=== PATIENT | female | born 2000 | race Hispanic/Latino ===

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

== ENCOUNTER 2019-07-14 15:36 | Inpatient (IN) | payer OTHER ==
[2019-07-14] MEDS ORDERED: Sodium Chloride 0.9% 1,000 ML IV SCH (16:00)
[2019-07-14] MEDS ORDERED: Gentamicin 20 MG/2 ML PF (Neonates) IVPB SCH ×2 (16:00→22:00)
[2019-07-14 16:25] VITALS: BMI 20.8
[2019-07-14] MEDS ORDERED: Gentamicin Sulfate 120 MG in Premix Bag 1 BAG IVPB SCH (16:45)
--- NOTE | 2019-07-14 16:47 | HP ---
PRINCIPAL DIAGNOSIS: Fever and right-sided low back pain for 2 days. This is a patient of Dr. Ang Arnold at [facility]'s [place]. HISTORY OF PRESENT ILLNESS: This is a 18-year-old G1, P0, at 23 weeks and 3 days with an EDC of November 07, 2019, who presented to the ER with complaint of fever and low back pain. She was sent up to Labor and Delivery for suspected pyelonephritis. She initially did not say that she had fever, so she initially avoided the COVID screening process. Nonetheless, when fever was found to be the diagnosis, when she arrived, she was put in room 7 and the proper PPE precautions were in place since arrival to the floor. In brief, she states that for 2 days, she has had burning on urination, frequency, and right-sided back pain. The patient's mother is here with her. She has good movement, but denies any complications, vaginal bleeding, or leakage of fluid. She denies any cough or sick contacts. She states that she had a fever of 101 at home earlier today. REVIEW OF SYSTEMS: Complete review of systems was checked but is otherwise negative unless specified in the HPI. PAST MEDICAL HISTORY: None. ALLERGIES: NONE. PAST SURGICAL HISTORY: Noncontributory. OB HISTORY: She is G1, P0. PHYSICAL EXAMINATION: VITAL SIGNS: Her temperature here is 101, pulse is 90s to 100s, blood pressure was pending as she had just arrived to Labor and Delivery, respirations were 18 and unlabored. GENERAL: She is sitting comfortably in bed, but appears nervous because of the COVID screening. She does have a face mask in place. ABDOMEN: Soft, nontender. She does admit to right CVAT. PELVIC: Deferred as the patient was uncomfortable with her low back pain and there was no vaginal complaints at this time. ASSESSMENT: This is a 18-year-old G1 at 23 weeks and 3 days with suspected pyelonephritis due to her complaints of low back pain, urinary frequency and dysuria, and fever. COVID rule out is in process per protocol. PLAN: 1. COVID screen to be obtained. 2. I have ordered a cath UA with reflex micro and reflex culture. 3. I have started Rocephin and gentamicin as empiric treatment for pyelonephritis. 4. PPE protocol in use. 5. I have ordered LR and normal saline hydration (normal saline to be given with Rocephin and then we will go back to LR). 6. Tylenol for fever. 7. I have ordered an OB ultrasound for documentation of EGA, although I am sure she has had one in her private visits. We will get one for record here. 8. I have explained this plan to the patient and the patient's mother, who is in the room. Job ID: [id number] MTDD
[2019-07-14] MEDS: Lactated Ringer's 1,000 ML IV SCH ×2 (16:51→20:54)
[2019-07-14] MEDS: cefTRIAXone\\ROCEPHIN 1 GM in Sodium Chloride 0.9% 100 ML IVPB SCH (17:02)
[2019-07-14] MEDS: Acetaminophen 500 MG TAB PO PRN ×2 (17:10→23:04)
[2019-07-14 17:20] LABS: #Lymphocytes 1.2 thou/uL (1.20-3.40); #Monocytes 1.1 thou/uL (0.11-0.59); #Neutrophils 14.6 thou/uL (1.40-6.50); %Eosinophils 0.1 % (0.0-10.0); %Lymphocytes 6.8 % (28.0-48.0); %Monocytes 6.7 % (0.0-4.0); %Neutrophils 86.4 % (31.0-61.0); Hemoglobin 12.1 g/dL (12.0-16.0); Mean Corpuscular HGB CONC 33.6 g/dL (32.0-36.0); Mean Corpuscular Hemoglobin 30.3 pg (25.0-35.0); Mean Corpuscular Volume 90.1 fL (78.0-98.0); Mean Platelet Volume 7.7 fL (7.4-10.4); Platelet Count 295 thou/uL (130-400); RBC Distribution Width 12.4 % (11.5-14.5); White Blood Cell (WBC) Count 16.9 thou/uL (4.8-10.8)
[2019-07-14 17:31] LABS: Bilirubin Negative (Negative); Blood, Urine Negative (Negative); Clarity Turbid (Clear); Glucose, Urine (Dipstick) Normal (Negative); Leukocyte 500 Leu/uL (Negative); Nitrite 2+ (Negative); Protein, Urine (Dipstick) 100 mg/dL (Neg-Trace); Renal Epithelial 0-3 HPF (None Seen); Urobilinogen 3 mg/dL (Less than 2); WBC/HPF Greater than 50 HPF (0-3)
[2019-07-14 17:40] LABS: ALT (SGPT) 11 U/L (8-55); AST (SGOT) 13 U/L (5-30); Albumin 3.8 g/dL (3.5-5.0); Alkaline Phosphatase 87 U/L (40-100); Anion Gap 14 mmol/L (10-20); BUN (Urea Nitrogen) 5 mg/dL (8.4-21.0); Bilirubin, Total 1.1 mg/dL (0.2-1.2); Calc. Creatinine Clearance 130 mL/min (70-130); Calcium 9.4 mg/dL (7.8-10.44); Carbon Dioxide 25 mmol/L (22-29); Chloride 102 mmol/L (98-107); Estimated GFR-MDRD Greater than 90; Globulin 3.4 g/dL (2.4-3.5); Glucose 79 mg/dL (70-105); Potassium 3.7 mmol/L (3.5-5.1); Protein, Total 7.2 g/dL (6.0-8.3); Sodium 137 mmol/L (136-145)
[2019-07-14 17:41] LABS: Bacteria/HPF 3+ HPF (None Seen)
--- NOTE | 2019-07-14 18:06 | PDOC.EVN ---
Event Note - Event Note Event Note: UA with overt evidence UTI. Culture pending. WBC 16.9 Flu and COVID testing sent.
--- NOTE | 2019-07-14 18:57 | ULT ---
ULTRASOUND OBSTETRICAL COMPLETE: 07/14/19 HISTORY: 18-year-old female for evaluation of anatomy. According to the wellness health coach note, she gave verbal report to nurse, Jenniffer. FINDINGS: number: Nava. lie: Cephalic. Maternal cervix: Poorly visualized. Placenta: Posterior. No placenta previa. Amniotic fluid volume: ISABELLA 13 cm. heart rate: 180 bpm The following anatomy is visualized, with no evidence of anomalies: Head, lateral ventricles, cerebellum, nose and lips, spine, upper limbs, lower limbs, four chamber he art, umbilical cord, cord insertion, stomach, and bladder. The left renal pelvis measures approximately 5 mm in AP dimension, at the upper limits of normal for this gestational age. biometry: Head circumference (HC): 21.7 cm 23w 5d Biparietal diameter (BPD): 5.9 cm 24w 0d Abdominal circumference (AC): 19.0 cm 23w 5d Femur length (FL): 4.2 cm 23w 3d Average ultrasound age (AUA): 23w 5d Estimated date of delivery (ISSA): 11/05/2019 Last menstrual period (LMP): 01/31/2019 Gestational age by LMP: 23w 3d Estimated weight (EFW): 617 g +/- 91 g (1 lb. 6 oz. +/- 3 oz.) IMPRESSION: 1. Live second trimester intrauterine gestation. 2. Estimated gestational age of 23 weeks, 5 days. 3. Cephalic lie. 4. Unilateral borderline left renal pelviectasis. 5. Borderline tachycardia. 6. Recommend follow-up. jude [] POS: CARI
[2019-07-15] MEDS: Gentamicin Sulfate 80 MG in Premix Bag 1 BAG IVPB SCH ×3 (02:30→19:24)
[2019-07-15] MEDS: Lactated Ringer's 1,000 ML IV SCH ×3 (06:05→21:43)
[2019-07-15] MEDS: Acetaminophen 500 MG TAB PO PRN ×2 (06:07→17:03)
--- NOTE | 2019-07-15 06:23 | PDOC.HOSPP ---
- Subjective Encounter Date: 07/15/19 (HD 2(admitted yesterday)) Encounter Time: 06:10 Subjective: Feels much better, she states her right flank pain is much improved, dk po - Objective Vital Signs & Weight: Weight Weight 114 lb Tmax was recorded as 104 last PM. I reviewed with her RN; the RN felt that may have been erroneous as she clinically looked well and non-toxic. This AM at 0600 the patient's temp was 100.5 BPs are wnl for her for 110s/60s with one value of 142 systolic last PM close to 2100. MEDS: Gent/Rocephin FLU neg CBC pending this AM Result Diagrams: 07/14/19 16:20 07/14/19 15:56 Radiology Reviewed by me: Yes ( sono noted with left BORDFERLINE pyelectasis) Hospitalist ROS - Review of Systems Constitutional: reports: fever All other systems reviewed; all pertinent +/- noted in HPI/Subj - Medication Medications: Active Medications Generic Name Dose Route Start Last Admin Trade Name Freq PRN Reason Stop Dose Admin Acetaminophen 1,000 mg 07/14/19 15:51 07/15/19 06:07 Tylenol PO 1,000 mg Q6H PRN Administration Moderate to Severe Pain (6-10) Ceftriaxone Sodium 1 gm/ 100 mls @ 200 mls/hr 07/14/19 16:30 07/14/19 17:02 Sodium Chloride IVPB 100 mls Q24HR VERENA Administration Lactated Ringer's 1,000 mls @ 125 mls/hr 07/14/19 16:00 07/15/19 06:05 Lactated Ringer's IV 1,000 mls .Q8H VERENA Administration Gentamicin Sulfate 80 mg/ 100 mls @ 200 mls/hr 07/14/19 00:30 07/15/19 02:30 Device IVPB 100 mls Q8H VERENA Administration - Exam Gastrointestinal: non-tender, non-distended Extremities: no cyanosis, no clubbing Skin: normal turgor Neurological: no focal deficits, no new deficit Psychiatric: normal affect Hosp A/P (1) Fever Code(s): R50.9 - FEVER, UNSPECIFIED Status: Acute (2) Pyelonephritis affecting in second trimester Code(s): O23.02 - INFECTIONS OF KIDNEY IN , SECOND TRIMESTER Status: Acute - Plan continue antibiotics (await urine culture; tylenol prn; COVID test pending. Follow temps.), out of bed/ambulate
[2019-07-15 06:47] LABS: #Lymphocytes 1.1 thou/uL (1.20-3.40); #Monocytes 1.3 thou/uL (0.11-0.59); #Neutrophils 15.2 thou/uL (1.40-6.50); %Basophils 0.1 % (0.0-1.0); %Eosinophils 0.2 % (0.0-10.0); %Lymphocytes 6.2 % (28.0-48.0); %Monocytes 7.2 % (0.0-4.0); %Neutrophils 86.4 % (31.0-61.0); Mean Corpuscular HGB CONC 34.7 g/dL (32.0-36.0); Mean Corpuscular Hemoglobin 31.3 pg (25.0-35.0); Mean Corpuscular Volume 90.1 fL (78.0-98.0); Platelet Count 252 thou/uL (130-400); RBC Distribution Width 12.4 % (11.5-14.5); Red Blood Cell (RBC) Count 3.53 mill/uL (4.00-5.20); White Blood Cell (WBC) Count 17.6 thou/uL (4.8-10.8)
[2019-07-15] MEDS: cefTRIAXone\\ROCEPHIN 1 GM in Sodium Chloride 0.9% 100 ML IVPB SCH (17:09)
[2019-07-16] MEDS: Gentamicin Sulfate 80 MG in Premix Bag 1 BAG IVPB SCH ×3 (03:19→19:56)
[2019-07-16] MEDS: Lactated Ringer's 1,000 ML IV SCH ×3 (05:49→23:56)
[2019-07-16 07:05] LABS: #Monocytes 0.7 thou/uL (0.11-0.59); #Neutrophils 9.2 thou/uL (1.40-6.50); %Basophils 0.2 % (0.0-1.0); %Eosinophils 0.3 % (0.0-10.0); %Lymphocytes 9.3 % (28.0-48.0); %Monocytes 6.3 % (0.0-4.0); %Neutrophils 83.9 % (31.0-61.0); Hemoglobin 9.9 g/dL (12.0-16.0); Mean Corpuscular HGB CONC 35.1 g/dL (32.0-36.0); Mean Corpuscular Hemoglobin 31.8 pg (25.0-35.0); Mean Corpuscular Volume 90.6 fL (78.0-98.0); Mean Platelet Volume 7.3 fL (7.4-10.4); Platelet Count 241 thou/uL (130-400); RBC Distribution Width 12.2 % (11.5-14.5)
--- NOTE | 2019-07-16 09:08 | PRG ---
DATE OF SERVICE: 07/16/2019 SUBJECTIVE: The patient is a 18-year-old female with an intrauterine at 23 weeks and 5 days, who was admitted with signs and symptoms of pyelonephritis. The patient has been on Rocephin and gentamicin for treatment. Also, the patient has been tested for COVID-19 and has been placed on isolation given the presence of fever. Results should be back today. Her urine culture has grown out E. coli. The patient has symptomatically been improving with treatment and has been afebrile since yesterday evening around 5 o'clock. I will continue current treatment as evidence is pointing more and more to pyelonephritis and anticipate the COVID-19 test to return today. If the patient continues to remain afebrile for the next 24 to 36 hours, the patient may be eligible for discharge home. Dr. Newsomes, her primary OB, has her set up for suppression for the remainder of her . Job ID: [id number]
[2019-07-16] MEDS: cefTRIAXone\\ROCEPHIN 1 GM in Sodium Chloride 0.9% 100 ML IVPB SCH (17:12)
[2019-07-17] MEDS: Gentamicin Sulfate 80 MG in Premix Bag 1 BAG IVPB SCH (03:58)
--- NOTE | 2019-07-17 07:20 | PDOC.BPN ---
- Brief Progress Note S: Patient feeling better today. Denies pain, VB, LOF, ctx, or other complaints. +FM O: Tm 101.4 (07/14 @1701), VSS Gen - AAO, NAD Abd - soft, gravid, NTTP Urine Culture: 100,000 E. coli, sensitive to Rocephin A/P: 18 y/o G1 at 23w6d with pyelonephritis, clinically improving on Rocephin and Gent. Culture + for E. coli, sensitive to Rocephin. Will d/c gent. Has been afebrile over 24 hours. Will discuss discharge timing of today vs tomorrow with Dr. Arnold. Continue to monitor at this time.
[2019-07-17] MEDS: Lactated Ringer's 1,000 ML IV SCH (07:59)
--- NOTE | 2019-07-17 08:31 | PDOC.EVN ---
Event Note - Event Note Event Note: OB lactation nurse note: Last temp was 07/14 at 1700. EColi sensitive to meds given. Likely home this PM with po macrobid (ordered per [place] to pharmacy)
--- NOTE | 2019-07-17 09:06 | DIS ---
DATE OF ADMISSION: 07/14/2019 DATE OF DISCHARGE: 07/17/2019 (today) PRINCIPAL DIAGNOSES: 1. Suspected right-sided pyelonephritis. 2. Second trimester (23-week gestation). 3. Maternal fever. HISTORY OF PRESENT ILLNESS: In brief, this 18-year-old primigravida was admitted when I was on-call on July 13 with high fever. She did have one temperature reading of 101.7 or so and then another reading after her admission got to a high of 104, but it was unsure if that was a valid temp as it was lower than that on recheck about 30 minutes later. She was admitted for pain on urination, right-sided pain and fever with a working diagnosis of pyelonephritis. However, because of her high temperature, she did follow the COVID19 rule out protocol and was put in droplet precautions. I started her on Rocephin and gentamicin for double coverage until her urine culture returned. Cath UA did show many bacteria and evidence of a UTI. Her urine culture did return positive for E coli during her hospitalization and it was sensitive to Rocephin, and so we stopped the gentamicin (Dr. Mcconnell stopped the gentamicin after the culture returned). It was sensitive to both. I evaluated the patient on the morning of 07/17/2019 and as she had been afebrile for greater than 24 hours (with the last temperature on July 14 at about 5:00 p.m.), I elected to send her home on 07/16 at around noon. I saw her at bedside in full PPE and she stated that she was clinically much improved and was happy to go home. We do not have the COVID test results yet, but my index of suspicion for this is low and even if it is positive, the Health Department will contact her and follow up. Her white blood cell count did decrease from an initial high value of 17 down to 11, and the 11 value was yesterday on July 15. MEDS: She was sent home on Macrobid 100 mg one p.o.b.i.d. for five days and then she will continue daily suppression for the remainder of the . I did discuss this with her. Dr. Arnold did call out the Macrobid suppression medication to her pharmacy on an earlier date and I gave her a prescription for the b.i.d. dosing for five days. I did explain this to her. So, as she was tolerating p.o., my index of suspicion was low for COVID-19, and as she clinically was better from a textbook case of obstetrical pyelonephritis, I planned to discharge her home today on July 16 at noon. Discharge order has been placed for noon. Job ID: [id number] MTDD
== END 2019-07-17 10:31 | disposition home health service (06) | DRG 833 ==
LOC: L&D/OP 15:36 → L&D 15:47
PROVIDERS: ADMIT Obstetrics & Gynecology; ATTEND Obstetrics & Gynecology
PROC: 8E0ZXY6 Isolation (ICD-10-PCS; principal; 2019-07-14)
DX: O23.02 Infections of kidney in pregnancy, second trimester (principal); B96.20 Unspecified Escherichia coli [E. coli] as the cause of diseases classified elsewhere; Z3A.23 23 weeks gestation of pregnancy; Z20.828 Contact with and (suspected) exposure to other viral communicable diseases
CPT/HCPCS: 36415; 51701; 76805; 80053; 81001; 85025; 87077; 87086; 87186; 87635; 87804; 99285; J0696; J1580; J3490; U0003

== ENCOUNTER 2019-10-26 19:00 | Inpatient (IN) | payer OTHER ==
[~2019-10-26 19:00] MED LIST: Bupivacaine/Epinephrine 0.25% 30 ML VIAL ONE
[2019-10-26 19:37] VITALS: BMI 23.9
[2019-10-26] MEDS ORDERED: Butorphanol Tartrate 1 MG/ML VIAL SLOW IVP PRN (20:27)
[2019-10-26] MEDS ORDERED: hydrALAZINE 20 MG/ML VIAL SLOW IVP PRN (20:27)
[2019-10-26] MEDS ORDERED: Ibuprofen 800 MG TAB PO PRN (20:27)
[2019-10-26] MEDS ORDERED: HYDROcodone/Acetaminophen 5/325 mg Tablet PO PRN (20:27)
[2019-10-26] MEDS ORDERED: Ondansetron PF 4 MG/2 ML Vial IVP PRN (20:27)
[2019-10-26] MEDS ORDERED: Lidocaine 1% (PF) 30 ML VIAL SC PRN (20:27)
[2019-10-26] MEDS ORDERED: Lactated Ringer's 1,000 ML IV SCH (20:30)
[2019-10-26 20:41] LABS: Hemoglobin 11.2 g/dL (12.0-16.0); Mean Corpuscular HGB CONC 32.7 g/dL (32.0-36.0); Mean Corpuscular Hemoglobin 23.7 pg (25.0-35.0); Mean Corpuscular Volume 72.4 fL (78.0-98.0); Mean Platelet Volume 9.8 fL (7.4-10.4); Platelet Count 304 thou/uL (130-400); RBC Distribution Width 15.9 % (11.5-14.5); Red Blood Cell (RBC) Count 4.74 mill/uL (4.00-5.20); White Blood Cell (WBC) Count 14.4 thou/uL (4.8-10.8)
[2019-10-26] MEDS ORDERED: Fentanyl 4 mcg/Bup 0.1% Cadd 100 ML ONE (20:51)
[2019-10-26 21:19] LABS: Syphilis Antibody Nonreactive (Nonreactive); Syphilis Antibody Index 0.02 S/CO (<1.00 Non-Reactive)
[2019-10-26 23:02] LABS: HBSAg Index 0.16 S/CO (0-0.99); Hep B Surf Ag Non-Reactive S/CO (NonReactive)
[2019-10-27] MEDS: NS / Oxytocin 40 units/1000ml 1,000 ML IV PRN ×2 (01:15→03:02)
[2019-10-27] MEDS ORDERED: Lanolin Ointment 7 GM TUBE TOP PRN (03:35)
[2019-10-27] MEDS ORDERED: Milk Of Magnesia 30 ML UDCUP PO PRN (03:35)
[2019-10-27] MEDS ORDERED: hydrALAZINE 20 MG/ML VIAL SLOW IVP PRN (03:35)
[2019-10-27] MEDS ORDERED: Ondansetron PF 4 MG/2 ML Vial IVP PRN (03:35)
[2019-10-27] MEDS ORDERED: Bisacodyl 10 MG SUPP PR PRN (03:35)
[2019-10-27] MEDS ORDERED: Benzocaine-Menthol 82.5 ML CAN TOP PRN (03:35)
[2019-10-27] MEDS ORDERED: Promethazine HCl 25 MG/ML VIAL IM PRN (03:35)
[2019-10-27] MEDS ORDERED: NS / Oxytocin 40 units/1000ml 1,000 ML IV SCH (03:45)
[2019-10-27] MEDS: Ibuprofen 800 MG TAB PO SCH ×3 (05:24→21:18)
--- NOTE | 2019-10-27 07:29 | PRG ---
DATE OF SERVICE: 10/27/2019 SUBJECTIVE: The patient is a 18-year-old day 1, status post a term spontaneous vaginal delivery. She reports she is tolerating p.o., voiding on her own, having decreased lochia and good pain control. OBJECTIVE: VITAL SIGNS: This morning, blood pressure is 117/59, temperature 98.4, pulse of 96, respiratory rate of 18. GENERAL: She appears to be in no acute distress. She is alert, oriented, cooperative, and pleasant to interact with. HEAD: Normocephalic and atraumatic. ABDOMEN: Fundus is firm at the umbilicus, -2. EXTREMITIES: Nontender, nonedematous. LABORATORY DATA: COVID-19 testing is still pending. CBC is still pending. Pre-delivery CBC is 11.2, hematocrit 34.4, and platelets of 304,000. ASSESSMENT AND PLAN: The patient is a G1, now P1 female, day 1, status post a term spontaneous vaginal delivery. Anticipate discharge tomorrow. Job ID: [id number]
[2019-10-27] MEDS: Docusate Calcium (SURFAK) 240 MG CAP PO SCH ×2 (08:33→21:18)
[2019-10-27] MEDS: Prenatal Vitamin 1 TAB PO SCH (08:33)
[2019-10-27] MEDS: Ferrous Sulfate 325 MG TAB PO SCH ×2 (08:35→19:13)
[2019-10-27] MEDS ORDERED: Adacel (T-DAP) 0.5 ML SYRINGE IM ONE (09:00)
--- NOTE | 2019-10-27 09:06 | DN ---
DATE OF PROCEDURE: 10/26/2019 The patient is a 18-year-old female, G2, now P1, who delivered a male infant on 10/27/2019 at 0027 hours by term spontaneous vaginal delivery. Gestational age is 38 weeks and 2 days. weight was 2938 g. Apgars were 8 and 9. Placenta delivered spontaneously followed by Pitocin infusion. There were bilateral labial lacerations that required repair for hemostasis. Dr. Damico is the delivering physician. QUANTITATIVE BLOOD LOSS: 128 mL. COUNTS: correct. COMPLICATIONS: None. The patient and baby were stable in the room in the immediate . Job ID: [id number]
[2019-10-27 11:58] LABS: SARS-CoV-2 MS2 Positive; SARS-CoV-2 N Gene Positive; SARS-CoV-2 S Gene Positive; SARS-CoV-2 by NAA DETECTED (NotDetected); SARS-CoV-2 orf1ab Positive
--- NOTE | 2019-10-27 12:41 | PDOC.EVN ---
Event Note - Event Note Event Note: Call from floor RN that COVID test is positive. Result given to pt. by phone. She has no c/o. Questions answered. Precautions ordered.
[2019-10-28 05:39] LABS: #Basophils 0.1 thou/uL (0.0-0.2); #Eosinphils 0.2 thou/uL (0.0-0.7); #Lymphocytes 3.9 thou/uL (1.20-3.40); #Neutrophils 11.5 thou/uL (1.40-6.50); %Basophils 0.3 % (0.0-1.0); %Eosinophils 1.2 % (0.0-10.0); %Lymphocytes 23.4 % (28.0-48.0); %Monocytes 5.8 % (0.0-4.0); %Neutrophils 69.3 % (31.0-61.0); Hemoglobin 9.8 g/dL (12.0-16.0); Mean Corpuscular HGB CONC 30.6 g/dL (32.0-36.0); Mean Corpuscular Hemoglobin 22.6 pg (25.0-35.0); Mean Corpuscular Volume 73.7 fL (78.0-98.0); Mean Platelet Volume 9.3 fL (7.4-10.4); Platelet Count 273 thou/uL (130-400); RBC Distribution Width 15.9 % (11.5-14.5); Red Blood Cell (RBC) Count 4.35 mill/uL (4.00-5.20); White Blood Cell (WBC) Count 16.6 thou/uL (4.8-10.8)
[2019-10-28] MEDS: Ibuprofen 800 MG TAB PO SCH ×2 (06:45→14:16)
--- NOTE | 2019-10-28 06:52 | PDOC.PP ---
Post Progress Note Post Day #: PPD2 Subjective: No c/o. Denies chills, SOB. Talked via phone. Nurse has seen her 30 mins ago. PO intake tolerated: yes Ambulation: yes Vital Signs (12 hours) Temp Pulse Resp BP Pulse Ox 10/27/19 21:30 98.3 F 109 H 16 127/75 99 Weight Weight 59.421 kg - Physical Examination General: NAD Respiratory: non-labored breathing Psychiatric: normal affect Result Diagrams: 10/28/19 05:27 Additional Labs: Post Labs Blood Type A POSITIVE 10/26/19 20:30 Hep Bs Antigen Non-Reactive S/CO (NonReactive) 10/26/19 20:30 - Assessment/Plan Doing well s/p . COVID+, asymptomatic. DC home with PP and COVID precautions. Call [facility] to schedule f/u appt.
[2019-10-28] MEDS: Ferrous Sulfate 325 MG TAB PO SCH (07:34)
[2019-10-28] MEDS: Prenatal Vitamin 1 TAB PO SCH (08:41)
[2019-10-28] MEDS: Docusate Calcium (SURFAK) 240 MG CAP PO SCH (08:41)
[2019-10-28 10:20] VITALS: BP 127/74; TEMP 98.7
== END 2019-10-28 15:45 | disposition home or self-care (01) | DRG 805 ==
LOC: L&D/OP 19:00 → L&D 23:03 → 3SW 10-27 03:07
PROVIDERS: ADMIT Obstetrics & Gynecology; ATTEND Obstetrics & Gynecology
PROC: 10E0XZZ Delivery of Products of Conception, External Approach (ICD-10-PCS; principal; 2019-10-26)
PROC: 0HQ9XZZ Repair Perineum Skin, External Approach (ICD-10-PCS; 2019-10-26)
PROC: 8E0ZXY6 Isolation (ICD-10-PCS; 2019-10-26)
DX: O98.52 Other viral diseases complicating childbirth (principal); U07.1 COVID-19; Z37.0 Single live birth; Z3A.38 38 weeks gestation of pregnancy; O70.0 First degree perineal laceration during delivery
CPT/HCPCS: 36415; 51702; 85025; 85027; 86780; 86850; 86900; 86901; 87340; 87635; 99285; J2001; U0003

== ENCOUNTER 2019-12-07 04:05 | Emergency (ER) | payer OTHER ==
[2019-12-07] MEDS ORDERED: Lidocaine Viscous Sol 2% 15 ml UD Cup ONE (04:22)
[2019-12-07] MEDS ORDERED: Mag-Al 1200 mg/1200 mg/30 ML UDCUP ONE (04:22)
[2019-12-07 04:55] LABS: Pregnancy Test - Urine (BHCG) Negative (Negative); Pregu Control Background? CLEAR/WHITE (CLR/WHITE); Pregu Control Bar Appear? YES (CONTROL BAR); Specific Gravity 1.022 (1.002-1.036)
[2019-12-07 04:57] LABS: Bacteria/HPF None Seen HPF (None Seen); Bilirubin Negative (Negative); Blood, Urine 3+ (Negative); Clarity Turbid (Clear); Glucose, Urine (Dipstick) Normal (Negative); Ketone, Urine Negative (Negative); Leukocyte 75 Leu/uL (Negative); Mucous/LPF 1+ LPF (<2+); Nitrite Negative (Negative); Protein, Urine (Dipstick) 10 mg/dL (Neg-Trace); RBC/HPF Greater than 50 HPF (0-3); Specific Gravity, Urine 1.022 (1.002-1.036); Squamous Epithelial 0-3 HPF (0-3); Urobilinogen Normal mg/dL (Less than 2); WBC/HPF 21-50 HPF (0-3)
== END 2019-12-07 05:01 | disposition home or self-care (01) ==
LOC: ERS 04:05
DX: R10.13 Epigastric pain (principal); F41.9 Anxiety disorder, unspecified; F31.9 Bipolar disorder, unspecified; F20.9 Schizophrenia, unspecified
CPT/HCPCS: 81003; 81015; 81025; 99284

== ENCOUNTER 2020-01-27 03:14 | Emergency (ER) | payer OTHER ==
[2020-01-27 03:40] LABS: Bilirubin Negative (Negative); Blood, Urine Negative (Negative); Clarity Turbid (Clear); Glucose, Urine (Dipstick) Normal (Negative); Ketone, Urine Negative (Negative); Leukocyte 250 Leu/uL (Negative); Nitrite Negative (Negative); Protein, Urine (Dipstick) Negative (Neg-Trace); RBC/HPF 0-3 HPF (0-3); Specific Gravity, Urine 1.022 (1.002-1.036); Urobilinogen Normal mg/dL (Less than 2)
[2020-01-27 03:44] LABS: Bacteria/HPF 1+ HPF (None Seen)
[2020-01-27] MEDS ORDERED: Ondansetron PF 4 MG/2 ML Vial ONE (03:45)
[2020-01-27] MEDS ORDERED: Morphine 4 MG/ML VIAL ONE (03:45)
[2020-01-27 04:23] LABS: #Eosinphils 0.1 thou/uL (0.0-0.7); #Lymphocytes 1.6 thou/uL (1.20-3.40); #Monocytes 0.7 thou/uL (0.11-0.59); #Neutrophils 14.9 thou/uL (1.40-6.50); %Basophils 0.1 % (0.0-1.0); %Eosinophils 0.6 % (0.0-10.0); %Lymphocytes 9.4 % (28.0-48.0); %Monocytes 3.9 % (0.0-4.0); Hemoglobin 13.2 g/dL (12.0-16.0); Mean Corpuscular HGB CONC 34.8 g/dL (32.0-36.0); Mean Corpuscular Hemoglobin 27.1 pg (25.0-35.0); Mean Corpuscular Volume 77.8 fL (78.0-98.0); Platelet Count 367 thou/uL (130-400); RBC Distribution Width 15.9 % (11.5-14.5); Red Blood Cell (RBC) Count 4.88 mill/uL (4.00-5.20); White Blood Cell (WBC) Count 17.3 thou/uL (4.8-10.8)
[2020-01-27 04:50] LABS: ALT (SGPT) 23 U/L (8-55); AST (SGOT) 40 U/L (5-34); Alkaline Phosphatase 95 U/L (40-100); Anion Gap 14 mmol/L (10-20); BUN (Urea Nitrogen) 10 mg/dL (7.0-18.7); Bilirubin, Total 0.5 mg/dL (0.2-1.2); Calc. Creatinine Clearance 0 mL/min (70-130); Calcium 9.2 mg/dL (7.8-10.44); Carbon Dioxide 25 mmol/L (22-29); Chloride 104 mmol/L (98-107); Estimated GFR-MDRD Greater than 90; Globulin 3.3 g/dL (2.4-3.5); Glucose 156 mg/dL (70-105); Lipase 32 U/L (8-78); Potassium 3.7 mmol/L (3.5-5.1); Protein, Total 7.3 g/dL (6.0-8.3); Sodium 139 mmol/L (136-145)
--- NOTE | 2020-01-27 06:57 | ULT ---
PRELIMINARY REPORT/[facility]/EMERGENCY AFTER HOURS PROCEDURE: EXAM: US Abdomen Limited, Right Upper Quadrant. CLINICAL HISTORY: Epigastric pain, N/V, diarrhea TECHNIQUE: Real-time ultrasound of the right upper quadrant with image documentation. COMPARISON: None provided. FINDINGS: LIVER: Unremarkable. Measures 15.9 cm GALLBLADDER: Mobile cholelithiasis is noted. No wall thickening. No pericholecystic fluid. COMMON BILE DUCT: Appears mildly dilated at 8 mm PANCREAS: Unremarkable as visualized. The distal pancreas is obscured by overlying bowel gas. RIGHT KIDNEY: Unremarkable. No hydronephrosis. Measures 10.3 cm IMPRESSION: Cholelithiasis with mild dilatation of the common bile duct. There is no sonographic evidence for ac [place] cholecystitis ELECTRONICALLY SIGNED BY: Lawson Francisco MD Jan 27, 2020 4:39:41 AM CDT This report is intended for review by the ordering physician only, in accordance of law. If you recei ve this report in error, please call [facility] at [phone]. FINAL REPORT EMERGENCY AFTER HOURS RIGHT UPPER QUADRANT ABDOMINAL ULTRASOUND: Date: 01/27/2020 FINDINGS/IMPRESSION: I agree with the findings and impression given in the preliminary report per [facility] physici an. There is a small nonshadowing echogenic focus in the gallbladder which may represent a nonshadowing c alcification or a sludge ball. POS: ADELA
== END 2020-01-27 05:13 | disposition home or self-care (01) ==
LOC: ERS 03:14
DX: K80.80 Other cholelithiasis without obstruction (principal)
CPT/HCPCS: 76705; 80053; 81003; 81015; 83690; 85025; 96374; 96375; J2270; J2405

== ENCOUNTER 2020-12-07 17:16 | Emergency (ER) | payer OTHER ==
[2020-12-07 18:38] LABS: #Basophils 0.1 thou/uL (0.0-0.2); #Eosinphils 0.2 thou/uL (0.0-0.7); #Monocytes 0.6 thou/uL (0.11-0.59); #Neutrophils 9.2 thou/uL (1.40-6.50); %Basophils 0.4 % (0.0-1.0); %Eosinophils 1.6 % (0.0-10.0); %Lymphocytes 23.3 % (28.0-48.0); %Monocytes 4.2 % (0.0-4.0); %Neutrophils 70.6 % (31.0-61.0); Hemoglobin 14.6 g/dL (12.0-16.0); Mean Corpuscular HGB CONC 33.7 g/dL (32.0-36.0); Mean Corpuscular Hemoglobin 28.1 pg (25.0-35.0); Mean Corpuscular Volume 83.6 fL (78.0-98.0); Mean Platelet Volume 7.4 fL (7.4-10.4); Platelet Count 476 thou/uL (130-400); RBC Distribution Width 11.7 % (11.5-14.5); Red Blood Cell (RBC) Count 5.19 mill/uL (4.00-5.20)
[2020-12-07 18:58] LABS: BHCG - Serum Negative (NEGATIVE); Pregs Control Background? CLEAR/WHITE (CLR/WHITE); Pregs Control Bar Appear? YES (CONTROL BAR)
[2020-12-07 19:01] LABS: ALT (SGPT) 12 U/L (8-55); AST (SGOT) 16 U/L (5-34); Albumin 4.2 g/dL (3.5-5.0); Alkaline Phosphatase 89 U/L (40-100); Anion Gap 13 mmol/L (10-20); BUN (Urea Nitrogen) 9 mg/dL (7.0-18.7); Bilirubin, Total 0.4 mg/dL (0.2-1.2); Calc. Creatinine Clearance 0 mL/min (70-130); Calcium 9.9 mg/dL (7.8-10.44); Carbon Dioxide 26 mmol/L (22-29); Chloride 102 mmol/L (98-107); Globulin 3.6 g/dL (2.4-3.5); Glucose 104 mg/dL (70-105); Potassium 3.4 mmol/L (3.5-5.1); Protein, Total 7.8 g/dL (6.0-8.3); Sodium 138 mmol/L (136-145)
[2020-12-07 20:00] LABS: Bilirubin Negative (Negative); Blood, Urine 3+ (Negative); Glucose, Urine (Dipstick) Normal (Negative); Ketone, Urine Negative (Negative); Leukocyte Negative Leu/uL (Negative); Nitrite Negative (Negative); Protein, Urine (Dipstick) Negative (Neg-Trace); Specific Gravity, Urine 1.019 (1.002-1.036); pH, Urine 7.5 (5.0-9.0)
[2020-12-07 20:02] LABS: Bacteria/HPF 1+ HPF (None Seen); Clarity Cloudy (Clear)
== END 2020-12-07 20:35 | disposition home or self-care (01) ==
LOC: ERS 17:16
DX: N93.9 Abnormal uterine and vaginal bleeding, unspecified (principal)
CPT/HCPCS: 36415; 80053; 81003; 81015; 84703; 85025; 99284

== ENCOUNTER 2021-05-21 08:50 | Outpatient (CLI) | payer OTHER | END 2021-05-21 08:51 | disposition home or self-care (01) | LOC: BICULT 08:50 | PROVIDERS: ATTEND Advanced Practice Midwife | DX: N63.12 Unspecified lump in the right breast, upper inner quadrant (principal) ==

== ENCOUNTER 2024-01-09 20:59 | Emergency (ER) | payer MEDICAID, OTHER ==
[2024-01-09] MEDS ORDERED: Ondansetron PF 4 MG/2 ML Vial ONE (21:28)
[2024-01-09] MEDS ORDERED: Ketorolac Tromethamine 30 MG (1 mL) VIAL ONE (21:28)
[2024-01-09 21:42] LABS: Bilirubin Negative (Negative); Blood, Urine 1+ (Negative); CAUTI Indications for Culture Pelvic or flank pain; Clarity Clear (Clear); Glucose, Urine (Dipstick) Normal (Negative); Ketone, Urine 10 mg/dL (Negative); Leukocyte 75 Leu/uL (Negative); Nitrite Negative (Negative); Protein, Urine (Dipstick) 20 mg/dL (Neg-Trace); RBC/HPF 0-3 HPF (0-3); Specific Gravity, Urine 1.038 (1.002-1.036); Urobilinogen Normal mg/dL (Less than 2); pH, Urine 5.5 (5.0-9.0)
[2024-01-09 21:46] LABS: Bacteria/HPF 1+ HPF (None Seen)
[2024-01-09 21:49] LABS: Urine Culture Reflex No No
[2024-01-09 22:14] LABS: #Basophils Less than 0.03 10x3/uL (0.0-0.2); #Eosinophils Less than 0.03 10x3/uL (0.0-0.7); %Basophils 0.1 % (0.0-1.0); %Eosinophils 0.1 % (0.0-10.0); %Lymphocytes 6.7 % (21.0-51.0); %Monocytes 2.4 % (0.0-10.0); %Neutrophils 90.4 % (42.0-75.0); Hematocrit 46.1 % (36.0-47.0); Hemoglobin 15.2 g/dL (12.0-16.0); Mean Corpuscular Hemoglobin 26.8 pg (27.0-31.0); Mean Corpuscular Volume 81.3 fL (78.0-98.0); Mean Platelet Volume 9.5 fL (7.4-10.4); Platelet Count 391 10x3/uL (130-400); RBC Distribution Width 13.2 % (11.5-14.5); Red Blood Cell (RBC) Count 5.67 mill/uL (4.20-5.40)
[2024-01-09 22:25] LABS: BHCG - Serum Negative (NEGATIVE); Pregs Control Background? CLEAR/WHITE (CLR/WHITE); Pregs Control Bar Appear? YES (CONTROL BAR)
[2024-01-09 22:33] LABS: ALT (SGPT) 14 U/L (8-55); AST (SGOT) 19 U/L (5-34); Albumin 4.2 g/dL (3.5-5.0); Alkaline Phosphatase 96 U/L (40-110); Anion Gap 16 mmol/L (10-20); BUN (Urea Nitrogen) 11 mg/dL (7.0-18.7); Bilirubin, Total 1.2 mg/dL (0.2-1.2); Calc. Creatinine Clearance 0 mL/min (70-130); Carbon Dioxide 21 mmol/L (22-29); Chloride 106 mmol/L (98-107); Estimated GFR 127; Globulin 3.9 g/dL (2.4-3.5); Glucose 110 mg/dL (70-105); Lipase 22 U/L (8-78); Potassium 3.5 mmol/L (3.5-5.1); Protein, Total 8.1 g/dL (6.0-8.3); Sodium 139 mmol/L (136-145)
== END 2024-01-09 23:04 | disposition home or self-care (01) ==
LOC: ERS 20:59
DX: R19.7 Diarrhea, unspecified (principal); R11.0 Nausea
CPT/HCPCS: 80053; 81001; 83690; 84703; 85025; 96361; 96374; 96375; J1885; J2405

== ENCOUNTER 2024-03-26 20:41 | Emergency (ER) | payer MEDICAID ==
[2024-03-26] MEDS ORDERED: Dexamethasone 10 MG/ML VIAL ONE (21:30)
[2024-03-26] MEDS ORDERED: Ibuprofen 200 MG TAB ONE (21:30)
== END 2024-03-26 22:06 | disposition home or self-care (01) ==
LOC: ERS 20:41
DX: J02.9 Acute pharyngitis, unspecified (principal)
CPT/HCPCS: 87081; 87428; 87430; 99283; J1100